=== PATIENT | female | born 1990 | race Asian ===

== ENCOUNTER 2019-02-22 12:15 | Emergency (ER) | payer SELFPAY ==
[~2019-02-22] VITALS: Ht 160 cm; Wt 61.2 kg
[2019-02-22 13:51] LABS: BILIRUBIN,URINE NEGATIVE (NEG); CLARITY,URINE CLEAR; COLOR,URINE YELLOW; NITRITE,URINE NEGATIVE (NEG); PH,URINE 5.5; PROTEIN,URINE NEGATIVE (NEG-TRACE); UROBILINOGEN,URINE 0.2 mg/dL (0.2 mg/dL)
[2019-02-22 13:57] LABS: SQUAMOUS EPITHELIAL CELL,UR FEW /LPF
[2019-02-22 13:58] LABS: BACTERIA,URINE FEW /HPF (0-FEW); RBC,URINE TNTC /HPF (0-2); WBC,URINE 0 /HPF (0-4)
[2019-02-22 14:35] LABS: BASO # 0.1 x10^3/uL (0.0-0.2); BASO % 1 % (0-3); EOS % 0 % (0-3); HEMATOCRIT 38.7 % (36.0-47.0); HEMOGLOBIN 13.1 g/dL (12.0-15.5); LYMPH # 0.9 x10^3/uL (1.0-4.8); LYMPH % 15 % (24-48); MEAN CORPUSCULAR HEMOGLOBIN 29 pg (25-35); MEAN CORPUSCULAR HGB CONC 34 g/dL (31-37); MEAN CORPUSCULAR VOLUME 87 fL (79-100); MONO # 0.5 x10^3/uL (0.0-1.1); MONO % 8 % (0-9); NEUT # 4.9 x10^3/uL (1.8-7.7); NEUT % 76 % (31-73); PLATELET COUNT 174 x10^3/uL (140-400); RED BLOOD COUNT 4.44 x10^6/uL (3.50-5.40); RED CELL DISTRIBUTION WIDTH 13.4 % (11.5-14.5); WHITE BLOOD COUNT 6.5 x10^3/uL (4.0-11.0)
--- NOTE | 2019-02-22 14:38 | RAD ---
EXAM: Obstetrics sonogram. HISTORY: Vaginal bleeding. TECHNIQUE: . Transabdominal and transvaginal sonographic imaging of the pelvis was performed. COMPARISON: None. FINDINGS: The uterus measures 10.1 x 6.3 x 5.0 cm. There is a single intrauterine gestational sac and yolk sac with pole. The crown-rump length is 1.02 cm, corresponding with a gestational age of 7 weeks and 1 day. The yolk sac is upper normal in caliber. No cardiac activity is seen. There are subchorionic hematomas along the superior and inferior gestational sac measuring 2.0 x 0.6 x 0.3 cm and 1.9 x 0.8 x 0.8 cm. The cervix is closed and normal in length. There is nabothian cysts within the cervix. The ovaries are normal in size and demonstrate normal blood flow. IMPRESSION: 1. Single intrauterine fetus with an estimated gestational age of 7 weeks and 1 day. No cardiac activity is seen. This is consistent with intrauterine demise. 2. Subchronic hematomas along the superior and inferior gestational sac. Electronically signed by: Mattie Mahoney MD (02/22/2019 2:35 PM) [place] [id number]
--- NOTE | 2019-02-22 14:42 | PHYS DOC ---
Past Medical History Past Medical History: No Pertinent History Past Surgical History: Appendectomy Alcohol Use: None Drug Use: None Adult General Chief Complaint Chief Complaint: VAGINAL BLEEDING [facility] HPI Patient is a 28 year old female who presents to the ER with complaints of vaginal bleeding that occurred this morning. Pt states she is , 1, para 0, with her LMP on 12/21/18. She reports that early this morning she had some lower abdominal cramping and a gush of bloody vaginal discharge. She denies any tissue or blood clots in vaginal discharge. Pt states after the gush of blood she had moderate bleeding for about 10-20 minutes. Since then the cramping has gone away and she is only spotting at this time. Pt denies any irregular vaginal discharge prior to the onset of the bleeding. She denies any fever, back pain, nausea, vomiting, diarrhea, cough, or shortness of breath. Pt reports she does not have an OBGyn and is unsure of her EDC. Currently she rates her discomfort a 0/10 on the pain scale. All other ROS is neg unless otherwise noted in HPI. Review of Systems Review of Systems See Above Physical Exam Physical Exam See Above Constitutional: Well developed, well nourished, no acute distress, non-toxic appearance. HENT: Normocephalic, atraumatic, bilateral external ears normal, nose normal. Eyes: PERRLA, EOMI, conjunctiva normal, no discharge. Neck: Normal range of motion, supple, no stridor. Cardiovascular: Heart rate regular rhythm Lungs & Thorax: Respirations even and unlabored, no retractions, no respiratory distress Pelvic Exam: Gang Ripsaw Operator present Abdomen: Nontender, soft External Genitalia: Normal Skin Speculum: Normal vaginal mucosa, bloody cervical discharge, OS closed Bimanual: deferred Skin: Warm, dry, no erythema, no rash. Extremities: No cyanosis, ROM intact, no edema. Neurologic: Alert and oriented X 3, no focal deficits noted. Psychologic: Affect normal, judgement normal, mood normal. Current Patient Data Vital Signs Vital Signs Date Time Temp Pulse Resp B/P (MAP) Pulse Ox O2 Delivery O2 Flow Rate FiO2 02/22/19 15:53 80 17 130/72 (91) 100 Room Air 02/22/19 13:10 98.8 98.8 Lab Values Laboratory Tests Test 02/22/19 13:12 02/22/19 13:17 02/22/19 14:25 Urine Collection Type Unknown Urine Color Yellow Urine Clarity Clear Urine pH 5.5 Urine Specific [place] 1.020 Urine Protein Negative mg/dL (NEG-TRACE) Urine Glucose (UA) Negative mg/dL (NEG) Urine Ketones (Stick) 40 mg/dL (NEG) Urine Blood Large (NEG) Urine Nitrite Negative (NEG) Urine Bilirubin Negative (NEG) Urine Urobilinogen Dipstick 0.2 mg/dL (0.2 mg/dL) Urine Leukocyte Esterase Negative (NEG) Urine RBC Tntc /HPF (0-2) Urine WBC 0 /HPF (0-4) Urine Squamous Epithelial Cells Few /LPF Urine Bacteria Few /HPF (0-FEW) Urine Mucus Mod /LPF POC Urine HCG, Qualitative Hcg positive (Negative) White Blood Count 6.5 x10^3/uL (4.0-11.0) Red Blood Count 4.44 x10^6/uL (3.50-5.40) Hemoglobin 13.1 g/dL (12.0-15.5) Hematocrit 38.7 % (36.0-47.0) Mean Corpuscular Volume 87 fL (79-100) Mean Corpuscular Hemoglobin 29 pg (25-35) Mean Corpuscular Hemoglobin Concent 34 g/dL (31-37) Red Cell Distribution Width 13.4 % (11.5-14.5) Platelet Count 174 x10^3/uL (140-400) Neutrophils (%) (Auto) 76 % (31-73) H Lymphocytes (%) (Auto) 15 % (24-48) L Monocytes (%) (Auto) 8 % (0-9) Eosinophils (%) (Auto) 0 % (0-3) Basophils (%) (Auto) 1 % (0-3) Neutrophils # (Auto) 4.9 x10^3/uL (1.8-7.7) Lymphocytes # (Auto) 0.9 x10^3/uL (1.0-4.8) L Monocytes # (Auto) 0.5 x10^3/uL (0.0-1.1) Eosinophils # (Auto) 0.0 x10^3/uL (0.0-0.7) Basophils # (Auto) 0.1 x10^3/uL (0.0-0.2) Maternal Serum HCG Beta Subunit 83033 mIU/mL (0-5) H Laboratory Tests 02/22/19 14:25 EKG EKG [] Radiology/Procedures Radiology/Procedures PROCEDURE: OB <14 WKS W/TV EXAM: Obstetrics sonogram. HISTORY: Vaginal bleeding. TECHNIQUE: . Transabdominal and transvaginal sonographic imaging of the pelvis was performed. COMPARISON: None. FINDINGS: The uterus measures 10.1 x 6.3 x 5.0 cm. There is a single intrauterine gestational sac and yolk sac with pole. The crown-rump length is 1.02 cm, corresponding with a gestational age of 7 weeks and 1 day. The yolk sac is upper normal in caliber. No cardiac activity is seen. There are subchorionic hematomas along the superior and inferior gestational sac measuring 2.0 x 0.6 x 0.3 cm and 1.9 x 0.8 x 0.8 cm. The cervix is closed and normal in length. There is nabothian cysts within the cervix. The ovaries are normal in size and demonstrate normal blood flow. IMPRESSION: 1. Single intrauterine fetus with an estimated gestational age of 7 weeks and 1 day. No cardiac activity is seen. This is consistent with intrauterine demise. 2. Subchronic hematomas along the superior and inferior gestational sac. [] Course & Med Decision Making Course & Med Decision Making Pertinent Labs and Imaging studies reviewed. (See chart for details) Spoke with Dr. Reilly and advised of demise and patient presentation. Will have patient call his office in the morning for follow up. Pt advised of no heart activity and findings consistent with miscarriage. Pt denies any pain at discharge. Will call Dr. Reilly's office for follow up. Pt instructed to return to ER if pain or bleeding increased. Pt verbalized an understanding of home care, medications, follow-up, and return to ED instructions and was in agreement with the plan of care. [] Dragon Disclaimer Dragon Disclaimer This electronic medical record was generated, in whole or in part, using a voice recognition dictation system. Departure Departure Impression: Primary Impression: Incomplete miscarriage Disposition: HOME, SELF-CARE Condition: STABLE Referrals: NURA REILLY Jr, MD Patient Instructions: Incomplete Miscarriage Additional Instructions: Call Dr. Reilly's office in the morning for follow up appointment. Tylenol or Ibuprofen as needed for pain. Pelvic rest until cleared by Dr. Reilly. Return to the ER if your symptoms worsen or you bleeding becomes so heavy that you are saturating more than one pad an hour. VINCE PAYNE APRN Feb 22, 2019 14:42
[2019-02-22 15:53] VITALS: BP 130/72
== END 2019-02-22 16:10 | disposition home or self-care (01) ==
LOC: ER 12:15
DX: O03.4 Incomplete spontaneous abortion without complication (principal); R10.30 Lower abdominal pain, unspecified; Z90.89 Acquired absence of other organs; Z3A.01 Less than 8 weeks gestation of pregnancy
CPT/HCPCS: 36415; 76801; 76817; 81001; 81025; 84702; 85025; 86900; 86901; 99285

== ENCOUNTER 2019-03-16 10:26 | Day surgery (SDC) | payer MEDICAID, OTHER ==
[~2019-03-16 10:26] MED LIST: HYDROmorphone 2 MG/ML VIAL IV PRN; IV RINGERS,LACTATED 1000ML 1,000 ML IV SCH; MORPHINE SULFATE 2 MG/ML VIAL. IV PRN; ONDANSETRON PF 4 MG/2 ML VIAL. IV PRN; PROCHLORPERAZINE 10 MG/2 ML VIAL. IV PRN; ceFAZolin SODIUM IV Push 1 GM VIAL. IVP PRN; fentaNYL PF VIAL 100 MCG/2 ML VIAL IV PRN
[2019-03-16] MEDS ORDERED: OXYTOCIN 10 UNIT/ML VIAL. ONE (10:39)
[2019-03-16] MEDS ORDERED: VASOPRESSIN 20 UNIT/ML VIAL. ONE (10:39)
[2019-03-16 12:06] LABS: RED BLOOD COUNT 4.57 x10^6/uL (3.50-5.40); WHITE BLOOD COUNT 5.9 x10^3/uL (4.0-11.0)
[2019-03-16 12:07] LABS: BASO % 1 % (0-3); EOS # 0.2 x10^3/uL (0.0-0.7); EOS % 3 % (0-3); HEMATOCRIT 41.6 % (36.0-47.0); HEMOGLOBIN 13.3 g/dL (12.0-15.5); LYMPH # 1.3 x10^3/uL (1.0-4.8); LYMPH % 21 % (24-48); MEAN CORPUSCULAR HEMOGLOBIN 29 pg (25-35); MEAN CORPUSCULAR HGB CONC 32 g/dL (31-37); MEAN CORPUSCULAR VOLUME 91 fL (79-100); MONO # 0.4 x10^3/uL (0.0-1.1); MONO % 7 % (0-9); NEUT % 68 % (31-73); PLATELET COUNT 225 x10^3/uL (140-400); RED CELL DISTRIBUTION WIDTH 13.7 % (11.5-14.5)
[2019-03-16] MEDS ORDERED: fentaNYL PF VIAL 100 MCG/2 ML VIAL ONE (12:10)
[2019-03-16] MEDS ORDERED: LIDOCAINE 2% PF 5 ML VIAL. ONE (12:17)
[2019-03-16] MEDS ORDERED: DEXAMETHASONE SOD PHOS 4 MG/ML VIAL ONE (12:17)
[2019-03-16] MEDS ORDERED: ONDANSETRON PF 4 MG/2 ML VIAL. ONE (12:17)
[2019-03-16] MEDS ORDERED: PROPOFOL 20 ML IV ONE (12:17)
--- NOTE | 2019-03-16 12:51 | PDOC ---
BRIEF OPERATIVE NOTE Date: Mar 16, 2019 Pre-Op Diagnosis MAB Post-Op Diagnosis SAme Procedure Performed Suction D&C Surgeon Dr. Reilly Anesthesia Type: General Blood Loss 50 ml Specimens Obtained POC Findings POC Complications none Operative Note see dictation NURA REILLY Jr, MD Mar 16, 2019 12:51
[2019-03-16] MEDS ORDERED: SEVOFLURANE 31 TO 60 MINUTES. IH ONE (12:52)
--- NOTE | 2019-03-16 12:52 | DISCH ---
DISCHARGE INSTRUCTIONS Condition on Discharge Condition on Discharge: Stable Activity After Discharge Activity Instructions for Disc: Activity as tolerated Lifting Instructions after Dis: No heavy lifting Driving Instructions after Dis: Do not drive today Diet after Discharge Diet after Discharge: Regular Contacting the DRNancy after DC Call your doctor for: Concerns you may have Follow-Up Follow up with: Dr. Reilly in 1 week NURA REILLY Jr, MD Mar 16, 2019 12:52
[2019-03-16] MEDS ORDERED: OXYC-325 PO (13:24)
[2019-03-16] MEDS ORDERED: oxyCODONE/APAP 5/325 1 TAB TABLET PO ONE ×2 (13:30)
--- NOTE | 2019-03-16 13:33 | OP ---
DATE OF SURGERY: 03/16/2019 PREOPERATIVE DIAGNOSIS: Missed . POSTOPERATIVE DIAGNOSIS: Missed . PROCEDURE: Suction D and C. SURGEON: Mars Reilly MD ANESTHESIA: GETA. ESTIMATED BLOOD LOSS: 50 mL. COMPLICATIONS: None. FINDINGS: Products of conception and blood products. SUMMARY: A 28-year-old with a 7-week missed who counseled on suction D and C. She was counseled on the risks, benefits and expectations and voiced clear understanding to proceed. DESCRIPTION OF PROCEDURE: The patient was taken to the surgery suite and placed in dorsal lithotomy position. She was prepped with Betadine solution and draped in sterile fashion. After adequate anesthesia, weighted speculum and curved [place] placed vaginally. Anterior lip of the cervix grasped with single-tooth tenaculum. Cervix was dilated with Hegar dilators up to size 7. The size 7 curved tip suction curette was then passed through the cervix using a pressure of 65 cmHg to remove blood products and products of conception. Sharp curettage took place until a fine gritty surface was palpated circumferentially. The suction curette was once again passed and rotated in a circumferential manner, removing additional products of conception and blood products. The single-tooth tenaculum and weighted speculum were removed. The patient tolerated the procedure well. The uterus palpated firm. Sponge count was correct x 3. The patient was taken to recovery room in stable condition. MARS REILLY MD DR: ASA/maia JOB#: [id number] / [id number]
[2019-03-16 14:22] VITALS: BP 116/64
--- NOTE | 2019-03-19 15:07 | PATHOLOGY ---
[facility] Accession Number: [id number] . 01 Material submitted: . product of conception - PRODUCTS OF CONCEPTION . 01 Clinical history: . Missed . 02 Diagnosis: Uterine contents, suction D and C: - Products of conception, comprised of immature chorionic villi showing focal mild hydropic degenerative changes and focal containing nucleated red blood cells, and segments of decidual tissue. (JPM/db; 03/19/2019) LBQ 03/19/2019 1031 Local . 02 Electronically signed: . Marvin Carranza MD, Pathologist NPI- [id number] . 01 Gross description: . The specimen is received in formalin, labeled "Cing Zomalneu, products of conception". Received are multiple segments of pink-alston to pink-scott soft tissue admixed with blood coagulum and spongiform tissue measuring 9.5 x 7.8 x 1.2 cm in aggregate dimension. or embryonic tissue is not grossly identified. Vesicular structures are absent. The specimen is submitted representatively in cassettes A1 through A3. (CAA; 03/16/2019) QAC/QAC 03/16/2019 1746 Local . 02 Pathologist provided ICD-10: O02.1 . 02 CPT . 367838 Specimen Comment: A courtesy copy of this report has been sent to [phone] Specimen Comment: Report sent to Specimen Comment: A duplicate report has been generated due to demographic updates. Performed at: 01 [facility] [address] [id number] MD Kain Ornelas MD Phone: [phone] Performed at: 02 [facility] [address] [place], [place] [id number] MD Marvin Carranza MD Phone: [phone]
== END 2019-03-16 15:25 | disposition home or self-care (01) ==
LOC: SURG 10:26
PROVIDERS: ATTEND Obstetrics & Gynecology
DX: O02.1 Missed abortion (principal); Z3A.01 Less than 8 weeks gestation of pregnancy; Z90.49 Acquired absence of other specified parts of digestive tract; Z83.3 Family history of diabetes mellitus
CPT/HCPCS: 36415; 59820; 85025; 86850; 86900; 86901; A7015; J0690; J0780; J1100; J2001; J2405; J2704; J3010; 88305; J2590; J3490

== ENCOUNTER → 2020-07-07 | Outpatient (CLI) | payer OTHER ==
[~2020-07-07] MED LIST changes: -HYDROmorphone 2 MG/ML VIAL IV PRN; -IV RINGERS,LACTATED 1000ML 1,000 ML IV SCH; -MORPHINE SULFATE 2 MG/ML VIAL. IV PRN; -ONDANSETRON PF 4 MG/2 ML VIAL. IV PRN; +OXYC-325 PO; -PROCHLORPERAZINE 10 MG/2 ML VIAL. IV PRN; -ceFAZolin SODIUM IV Push 1 GM VIAL. IVP PRN; -fentaNYL PF VIAL 100 MCG/2 ML VIAL IV PRN
== END ==
LOC: LAB 08:18
PROVIDERS: ATTEND Obstetrics & Gynecology
DX: Z01.812 Encounter for preprocedural laboratory examination (principal); Q76.49 Other congenital malformations of spine, not associated with scoliosis; Z20.822 Contact with and (suspected) exposure to COVID-19
CPT/HCPCS: U0003; U0005

== ENCOUNTER 2020-07-10 07:57 | Day surgery (SDC) | payer OTHER ==
[~2020-07-10] VITALS: Ht 160 cm; Wt 67.0 kg
[~2020-07-10 07:57] MED LIST changes: +ceFAZolin SODIUM IV Push 1 GM VIAL. IVP PRN
[2020-07-10] MEDS ORDERED: ceFAZolin SODIUM IV Push 1 GM VIAL. IVP ONE (08:00)
[2020-07-10] MEDS ORDERED: ASCO100T4 PO (08:24)
[2020-07-10] MEDS ORDERED: ASPI-630 PO (08:24)
[2020-07-10] MEDS ORDERED: PREN1TAB60 PO (08:24)
[2020-07-10] MEDS ORDERED: MIDAZOLAM HCL/PF 2 MG/2 ML VIAL. ONE (08:46)
[2020-07-10] MEDS ORDERED: PROPOFOL 10 MG/ML (20ML) VIAL. IV ONE (08:46)
[2020-07-10] MEDS ORDERED: fentaNYL PF VIAL 100 MCG/2 ML VIAL ONE (08:46)
[2020-07-10] MEDS ORDERED: LIDOCAINE 2% PF 5 ML VIAL. ONE (08:46)
[2020-07-10] MEDS ORDERED: DEXAMETHASONE SOD PHOS 4 MG/ML VIAL ONE (08:48)
[2020-07-10] MEDS ORDERED: ONDANSETRON PF 4 MG/2 ML VIAL. ONE (08:48)
[2020-07-10] MEDS ORDERED: FERRIC SUBSULFATE 8 ML SOL.W.APPL TP ONE (09:14)
[2020-07-10] MEDS ORDERED: LIDOCAINE 1%/EPI 1:100,000 20 ML VIAL. ONE (09:14)
[2020-07-10] MEDS ORDERED: SCOPOLAMINE 1.5MG PATCH. TD ONE (09:20)
[2020-07-10] MEDS ORDERED: LIDOCAINE 1%/EPI 1:100,000 20 ML VIAL. INJ ONE (09:40)
[2020-07-10] MEDS ORDERED: SEVOFLURANE 31 TO 60 MINUTES. IH ONE (09:43)
[2020-07-10] MEDS ORDERED: KETOROLAC 30 MG/ML VIAL. ONE (09:48)
--- NOTE | 2020-07-10 09:55 | PDOC ---
BRIEF OPERATIVE NOTE Date: July 10, 2020 Pre-Op Diagnosis DIAZ 1 Post-Op Diagnosis Same Procedure Performed Cevical Cone Biopsy Surgeon Dr. Reilly Anesthesia Type: General Blood Loss 10 ml Specimens Obtained cervical cone biopsy Findings cervical dysplasia Complications none Operative Note see dictation NURA REILLY Jr, MD July 10, 2020 09:55
--- NOTE | 2020-07-10 09:57 | DISCH ---
DISCHARGE INSTRUCTIONS Condition on Discharge Condition on Discharge: Stable Activity After Discharge Activity Instructions for Disc: Activity as tolerated Lifting Instructions after Dis: No heavy lifting Driving Instructions after Dis: Do not drive today Diet after Discharge Diet after Discharge: Regular Contacting the DRNancy after DC Call your doctor for: Concerns you may have Follow-Up Follow up with: Dr. Reilly in 2 weeks. NURA REILLY Jr, MD July 10, 2020 09:57
[2020-07-10] MEDS ORDERED: HYDROmorphone 2 MG/ML VIAL IVP PRN (10:00)
[2020-07-10] MEDS ORDERED: IV RINGERS,LACTATED 1000ML 1,000 ML IV SCH (10:00)
[2020-07-10] MEDS ORDERED: fentaNYL PF VIAL 100 MCG/2 ML VIAL IVP PRN ×2 (10:00)
[2020-07-10] MEDS ORDERED: PROCHLORPERAZINE 10 MG/2 ML VIAL. IVP PRN (10:00)
[2020-07-10] MEDS ORDERED: MORPHINE SULFATE 2 MG/ML VIAL. IVP PRN (10:00)
[2020-07-10] MEDS ORDERED: OXYC-325 PO (10:15)
[2020-07-10] MEDS ORDERED: oxyCODONE/APAP 5/325 1 TAB TABLET PO ONE ×2 (10:15)
[2020-07-10 11:40] VITALS: BP 105/65
--- NOTE | 2020-07-10 12:37 | OP ---
DATE OF SURGERY: 07/10/2020 PREOPERATIVE DIAGNOSIS: Cervical intraepithelial neoplasia 1. POSTOPERATIVE DIAGNOSIS: Cervical intraepithelial neoplasia 1. PROCEDURE: Cervical cone biopsy. SURGEON: Mars Reilly MD ANESTHESIA: GETA. ESTIMATED BLOOD LOSS: 10 mL. COMPLICATIONS: None. FINDINGS: Cervical dysplasia. SUMMARY: A 30-year-old with DIAZ 1 on colposcopic biopsy, requiring cervical cone biopsy. She was counseled on the risks, benefits and expectations and voiced clear understanding to proceed. DESCRIPTION OF PROCEDURE: The patient was taken to surgery suite and placed in the dorsal lithotomy position. She was prepped with Betadine solution and draped in a sterile fashion. After adequate anesthesia, weighted speculum and curved [place] were placed fascially. The anterior lip of the cervix grasped with single-tooth tenaculum. Cervix was injected with 1% lidocaine with epinephrine in a circumferential manner. 2-0 Vicryl sutures were placed at 3 o'clock and 9 o'clock position to help stabilize the cervix. The cone biopsy was performed with cold knife for ____ angle scalpel, removing the anterior lip of the cervix and then the posterior lip of the cervix. The remaining portion of the cervix was coagulated with Bovie cautery. Weighted speculum and curved [place] were removed. Single-tooth tenaculum was removed. The patient tolerated the procedure well and was taken to recovery room in stable condition. Sponge and needle count correct x 3. ASA/JUDY/[facility] DR: ASA/maia TID: [id number]
--- NOTE | 2020-07-16 18:06 | PATHOLOGY ---
[facility] Accession Number: [id number] . 01 Material submitted: . PART A: cervix - CERVICAL CONE BIOPSY, ANTERIOR LIP OF CERVIX SUTURE AT 12:00. Modifiers: anterior PART B: cervix - POSTERIOR LIP OF CERVIX. Modifiers: posterior . 01 Clinical history: . CW 1 CERVICAL DYSPLASIA CERVICAL CONE BIOPSY . 02 Diagnosis: A. Segment of uterine cervix, anterior lip cone biopsy: - Mild dysplasia (DIAZ I), focal. - Ectocervical and endocervical margins negative for dysplasia. - Active chronic cervicitis with focal squamous metaplasia. . B. Segment of uterine cervix, posterior lip cone biopsy: - Mild dysplasia (DIAZ I), focal. - Ectocervical and endocervical margins negative for dysplasia. - Active chronic cervicitis with focal squamous metaplasia. [facility] 07/16/2020 1738 Local . 02 Comment: There is no high grade dysplasia or evidence of malignancy. (JPM/db; 07/16/2020) . 02 Electronically signed: . Marvin Carranza MD, Pathologist NPI- [id number] . 01 Gross description: . A. Received in formalin labeled "Zomalneu, Cing, anterior lip of cervix suture at 12:00" is an irregular fragment of alston-white rubbery tissue measuring 1.6 x 1.5 x 0.6 cm. A suture is not identified on the specimen or in the container. The possible exocervical mucosa displays a alston-brown granular areas measuring 1.4 x 1.1 cm. The ectocervical margin is inked green and the deep margin is inked black. The specimen is sectioned and submitted entirely in cassettes A1-A2. . B. Received in formalin labeled "Zomalneu, Cing, posterior lip of cervix" is an irregular fragment of alston-white rubbery tissue measuring 2.5 x 1.8 x 1.1 cm. Possible exocervical mucosa is identified, which is alston-brown and diffusely granular. The ectocervical margin is inked green and the deep margin is inked black. The specimen is sectioned and submitted entirely in cassettes B1-B3. [place] 07/12[place] [facility] 07/12/2020 1531 Local . 02 Pathologist provided ICD-10: N87.0, N72 . 02 CPT . 928436, 129475 Specimen Comment: A courtesy copy of this report has been sent to [phone] Specimen Comment: Report sent to Performed at: 01 [facility] [address] [facility] [address], [place] [id number] MD Won Cueva MD Phone: [phone] Performed at: 02 [facility] [address] [place], [place] [id number] MD Marvin Carranza MD Phone: [phone]
== END 2020-07-10 11:56 | disposition home or self-care (01) ==
LOC: SURG 07:57
PROVIDERS: ATTEND Obstetrics & Gynecology
DX: N87.0 Mild cervical dysplasia (principal); N72 Inflammatory disease of cervix uteri; Z79.82 Long term (current) use of aspirin; Z79.899 Other long term (current) drug therapy; Z98.890 Other specified postprocedural states
CPT/HCPCS: 57520; 81025; 88305; A4930; J0690; J1100; J1885; J2405; J2704; J3010; J3490; J2250